=== PATIENT | female | born 1945 | race Caucasian/White ===

== ENCOUNTER 2016-12-15 10:37 | Inpatient (IN) | payer MEDICARE, OTHER ==
[2016-12-15] VITALS (10 sets, daily range): BP systolic 98–141; BP diastolic 53–81; PULSE 70–94; RESP 16–20; TEMP 97–97.8; O2SAT 94–98
[~2016-12-15] VITALS: Ht 167.6 cm; Wt 80.8 kg
[~2016-12-15 10:37] MED LIST: ADVAI250I INH; APIX5 PO; BUME1TAB PO; DIGO0.12 PO; DILTCD240 PO; FOLI1 PO; KCL20 PO; MAGN400 PO; METO25 PO; OMEP20TA PO; THIA100T PO
[2016-12-15] MEDS ORDERED: APIX5TAB PO (12:43)
[2016-12-15] MEDS ORDERED: DIGO0.12 PO (12:44)
[2016-12-15] MEDS ORDERED: BUME1TAB PO (12:44)
[2016-12-15] MEDS ORDERED: CARD120T4 PO (12:45)
[2016-12-15] MEDS ORDERED: FOLI5CAP PO (12:45)
[2016-12-15] MEDS ORDERED: POTA-163 PO (12:46)
[2016-12-15] MEDS ORDERED: THIA100T PO (12:46)
[2016-12-15] MEDS ORDERED: METO50TA PO (12:46)
--- NOTE | 2016-12-15 13:14 | PD ---
HPI Chief Complaint: Cardiac Complaint Time Seen by Provider: 12:52 Travel History International Travel<30 days: No Contact w/Intl Traveler<30days: No Traveled to known affect area: No History of Present Illness HPI 71-year-old female complains of shortness of breath, increasing lower extremity edema. Patient has history of atrial fibrillation, alcohol abuse, CVA, CHF, COPD, encephalopathy, GERD, hypertension, nicotine dependence. Patient noticed increase in shortness of breath, abdominal distention, jaundice, dark urine, lower extremity edema recently. Patient was seen by a director of strategic partnerships recently and advised to go to ED for evaluation. Patient denies any headache. Patient denies any chest pain. Patient states that she has shortness of breath and dyspnea on exertion. Patient has history of CHF and COPD and a smoker. Patient states that she drinks alcohol daily. Patient states that she went into alcohol withdrawal with hallucinations in the past if she stopped drinking. Patient denies any fever chills. Patient denies abdominal pain. Patient denies any nausea vomiting diarrhea. Patient denies any back pain. PFSH Past Medical History Arthritis: No Asthma: No Autoimmune Disease: No Anxiety: No Depression: No Heart Rhythm Problems: Yes (A-fib) Cancer: No Cardiovascular Problems: Yes (CHF) High Cholesterol: No Chemotherapy: No Chest Pain: No Congestive Heart Failure: Yes COPD: Yes Cerebrovascular Accident: Yes (Patient states she didn't have a stroke) Diabetes: No Diminished Hearing: No Endocrine: No Gastrointestinal Disorders: Yes GERD: No Genitourinary: Yes Hiatal Hernia: No Hypertension: Yes Immune Disorder: No Implanted Vascular Access Dvce: Yes Kidney Stones: No Musculoskeletal: Yes Neurologic: No Psychiatric: No Reproductive: No Respiratory: Yes Migraines: Yes Radiation Therapy: No Renal Failure: No Seizures: No Sickle Cell Disease: No Sleep Apnea: No Thyroid Disease: No Ulcer: No Tetanus Vaccination: > 5 Years Influenza Vaccination: No Past Surgical History AICD: No Arteriovenous Shunt: No Insulin Pump: No Joint Replacement: No Oral Surgery: Yes Pacemaker: No Other Surgery: Yes Social History Alcohol Use: Yes Tobacco Use: Yes (2 ppd) Substance Use: No Allergies-Medications (Allergen,Severity, Reaction): Coded Allergies: Penicillin (Verified Allergy, Severe, RASH, 12/15/16) Reported Meds & Prescriptions Reported Meds & Active Scripts Active Reported Thiamine (Thiamine HCl) 100 Mg Tab 100 Mg PO DAILY Potassium Chloride ER (Potassium Chloride) 20 Meq Tab 20 Meq PO DAILY Metoprolol Tartrate 50 Mg Tab 50 Mg PO BID Folic Acid 5 Mg Cap 1 Mg PO DAILY Cardizem (Diltiazem HCl) 120 Mg Tab 240 Mg PO DAILY Digoxin 0.125 Mg Tab 0.125 Mg PO DAILY Bumetanide 1 Mg Tab 1 Mg PO DAILY Eliquis (Apixaban) 5 Mg Tab 5 Mg PO BID Review of Systems General / Constitutional: No: Fever Eyes: No: Visual changes HENT: No: Headaches Cardiovascular: No: Chest Pain or Discomfort Respiratory: Positive: Shortness of Breath Gastrointestinal: No: Abdominal Pain Genitourinary: No: Dysuria Musculoskeletal: Positive: Edema, No: Pain Skin: No Rash Neurologic: No: Weakness Psychiatric: No: Depression Endocrine: No: Polydipsia Hematologic/Lymphatic: No: Easy Bruising Physical Exam Narrative GENERAL: Well-nourished, well-developed patient. SKIN: Warm and dry. Jaundiced HEAD: Normocephalic. EYES: Bilateral scleral icterus. No injection or drainage. NECK: Supple, trachea midline. No JVD or lymphadenopathy. CARDIOVASCULAR: Regular rate and rhythm without murmurs, gallops, or rubs. RESPIRATORY: Breath sounds equal bilaterally. No accessory muscle use. Mild expiratory wheezes bilaterally. Few rhonchi at the bases. GASTROINTESTINAL: Abdomen soft, distended. No tenderness on palpation. No rebound tenderness. MUSCULOSKELETAL: Patient has +2 pitting edema lower extremity. BACK: Nontender without obvious deformity. No CVA tenderness. Neurologic exam: Patient awake and alert oriented 3. No obvious focal neurological deficit. Data Data Last Documented VS Vital Signs Date Time Temp Pulse Resp B/P Pulse Ox O2 Delivery O2 Flow Rate FiO2 12/15/16 13:56 79 16 112/57 98 Room Air 12/15/16 12:32 97.6 Orders Nicotine 14 Mg Patch.24 Hr (Habitrol 14 (12/15/16 13:15) Thiamine Inj (Thiamine Inj) (12/15/16 13:15) Electrocardiogram (12/15/16 13:02) Complete Blood Count With Diff (12/15/16 13:02) Comprehensive Metabolic Panel (12/15/16 13:02) B-Type Natriuretic Peptide (12/15/16 13:02) Prothrombin Time / Inr (Pt) (12/15/16 13:02) Act Partial Throm Time (Ptt) (12/15/16 13:02) Lipase (12/15/16 13:02) Urinalysis - C+S If Indicated (12/15/16 13:02) Magnesium (Mg) (12/15/16 13:02) Alcohol (Ethanol) (12/15/16 13:02) Digoxin (12/15/16 13:02) Ammonia (12/15/16 13:02) Thyroid Stimulating Hormone (12/15/16 13:02) Phosphorus (Po4) (12/15/16 13:02) Chest, Single Ap (12/15/16 13:02) Ct Abd/Pel W/O Iv Contrast (12/15/16 13:02) Iv Access Insert/Monitor (12/15/16 13:02) Ecg Monitoring (12/15/16 13:02) Oximetry (12/15/16 13:02) Us Leg Venous Doppler Bilat (12/15/16 14:17) Labs Laboratory Tests Test 12/15/16 13:40 White Blood Count 11.8 TH/MM3 Red Blood Count 3.59 MIL/MM3 Hemoglobin 12.4 GM/DL Hematocrit 37.7 % Mean Corpuscular Volume 105.0 FL Mean Corpuscular Hemoglobin 34.6 PG Mean Corpuscular Hemoglobin 32.9 % Concent Red Cell Distribution Width 16.8 % Platelet Count 234 TH/MM3 Mean Platelet Volume 8.0 FL Neutrophils (%) (Auto) 75.4 % Lymphocytes (%) (Auto) 8.8 % Monocytes (%) (Auto) 12.0 % Eosinophils (%) (Auto) 1.5 % Basophils (%) (Auto) 2.3 % Neutrophils # (Auto) 8.9 TH/MM3 Lymphocytes # (Auto) 1.0 TH/MM3 Monocytes # (Auto) 1.4 TH/MM3 Eosinophils # (Auto) 0.2 TH/MM3 Basophils # (Auto) 0.3 TH/MM3 CBC Comment DIFF FINAL Differential Comment Prothrombin Time 15.2 SEC Prothromb Time International 1.4 RATIO Ratio Activated Partial 27.8 SEC Thromboplast Time Sodium Level 135 MEQ/L Potassium Level 3.8 MEQ/L Chloride Level 91 MEQ/L Carbon Dioxide Level 36.0 MEQ/L Anion Gap 8 MEQ/L Blood Urea Nitrogen 6 MG/DL Creatinine 0.60 MG/DL Estimat Glomerular Filtration 99 ML/MIN Rate Random Glucose 95 MG/DL Calcium Level 7.1 MG/DL Protein Corrected Calcium 7.6 MG/DL Phosphorus Level 2.8 MG/DL Magnesium Level 1.3 MG/DL Total Bilirubin 6.1 MG/DL Aspartate Amino Transf 101 U/L (AST/SGOT) Alanine Aminotransferase 38 U/L (ALT/SGPT) Alkaline Phosphatase 274 U/L Ammonia 58 MCMOL/L B-Type Natriuretic Peptide 635 PG/ML Total Protein 6.1 GM/DL Albumin 2.1 GM/DL Lipase 141 U/L Thyroid Stimulating Hormone 6.440 uIU/ML 3rd Gen Digoxin Level 1.2 NG/ML Ethyl Alcohol Level LESS THAN 3 MG/DL [facility] Medical Decision Making Medical Screen Exam Complete: Yes Emergency Medical Condition: Yes Medical Record Reviewed: Yes Interpretation(s) 1415 p.m. Last Impressions Abdomen/Pelvis CT 12/15/16 1302 Signed Impressions: Service Date/Time: November 13:22 - CONCLUSION: 1. Small right basilar effusion. 2. Mild cardiomegaly. 3. Atherosclerotic plaquing throughout the abdominal aorta. 4. No findings to indicate bowel obstruction or other significant intra-abdominal abnormality seen. No ascites is identified. 5. Enlargement of the uterus suggesting fibroids. Uriel Santana MD 1416 p.m. CBC WBC 11.8. Hemoglobin 12.4 hematocrit 37.7. MCV 105. 75 neutrophil. INR 1.4. Ammonia 58. 1445 PM. Chest x-ray show cardiomegaly with small left basilar effusion. Possible CHF. Sodium 135. Chloride 91. Bicarbonate 36.0. Protein corrected calcium 7.6. Magnesium 1.3. Total bili 6.1. AST 101. Alkaline phosphatase 274. Ammonia 58. BNP 635. TSH 6.4. Digoxin 1.2. Alcohol less than 3. Differential Diagnosis Differential diagnosis including acute exacerbation COPD, CHF, ascites, dependent edema. Narrative Course 71-year-old female with shortness of breath, abdominal distention, jaundice, lower extremity edema. History of CHF, COPD, alcohol abuse. Thiamine 100 mg IV. Nicotine patch. Calcium chloride 1 g IV given. Bumex 1 mg IV given. Diagnosis Primary Impression: Acute exacerbation of CHF (congestive heart failure) Qualified Code: I50.9 - Acute on chronic congestive heart failure, unspecified congestive heart failure type Additional Impression: Hepatic failure due to alcoholism Admitting Information Admitting Physician Requests: Observation Silvestre Brand MD Dec 15, 2016 13:14
[2016-12-15] MEDS ORDERED: NICOTINE 14 MG/24 HR PATCH TD ONE (13:15)
[2016-12-15] MEDS ORDERED: THIAMINE INJ 100 MG in SODIUM CHLORIDE 0.9% INJ 100 ML IV ONE (13:15)
--- NOTE | 2016-12-15 13:50 | RADHPO ---
EXAM DATE/TIME: 12/15/2016 13:22 [facility] COMPARISON: CT BRAIN W/O CONTRAST, April 19, 2015, 21:45. INDICATIONS : Abdominal distention. ORAL CONTRAST: No oral contrast ingested. RADIATION DOSE: 14.99 CTDIvol (mGy) MEDICAL HISTORY : Congestive hearrt failure. Chronic obstructive pulmonary disease. Hypertension. SURGICAL HISTORY : None. ENCOUNTER: Initial ACUITY: 4 - 6 days PAIN SCALE: 0/10 LOCATION: Abdomen. TECHNIQUE: Volumetric scanning of the abdomen and pelvis was performed. Using automated exposure control and ad justment of the mA and/or kV according to patient size, radiation dose was kept as low as reasonably achievable to obtain optimal diagnostic quality images. FINDINGS: The limited portion of the lung base visualized demonstrate a small right basilar effusion. There is a 6 mm calcified granuloma among the lateral margin of the right lower lobe. There is mild cardiomegaly. The appearance of the liver, spleen, pancreas, adrenal glands and kidneys is within normal limits. There is no retroperitoneal lymphadenopathy. There is atherosclerotic plaquing within the abdominal a adri. The visualized loops of small and large bowel are unremarkable. Imaging through the pelvis demonstrates mild enlargement of the uterus with some calcifications in th e uterus suggesting fibroids. There is no free fluid within the pelvis. No iliac or inguinal adenopat hy is present. The anterior abdominal wall is intact. There is some induration in the anterior abdominal wall. The visualized bony structures demonstrate degenerative changes but are otherwise intact. CONCLUSION: 1. Small right basilar effusion. 2. Mild cardiomegaly. 3. Atherosclerotic plaquing throughout the abdominal aorta. 4. No findings to indicate bowel obstruction or other significant intra-abdominal abnormality seen. N o ascites is identified. 5. Enlargement of the uterus suggesting fibroids. Uriel Santana MD on December 15, 2016 at 13:45 Board Certified Radiologist. This report was verified electronically.
[2016-12-15 13:53] LABS: AUTOMATED NEUTROPHIL # 8.9 TH/MM3 (1.8-7.7); BASOPHIL # 0.3 TH/MM3 (0-0.2); BASOPHIL % 2.3 % (0.0-2.0); EOSINOPHIL # 0.2 TH/MM3 (0-0.4); EOSINOPHIL % 1.5 % (0.0-4.0); HEMATOCRIT 37.7 % (35.0-46.0); LYMPH % 8.8 % (9.0-44.0); MEAN CORPUSCULAR HEMOGLOBIN 34.6 PG (27.0-34.0); MEAN CORPUSCULAR HGB CONC 32.9 % (32.0-36.0); NEUT % 75.4 % (16.0-70.0); PLATELET COUNT 234 TH/MM3 (150-450); RED BLOOD COUNT 3.59 MIL/MM3 (4.00-5.30); RED CELL DISTRIBUTION WIDTH 16.8 % (11.6-17.2); WHITE BLOOD COUNT 11.8 TH/MM3 (4.0-11.0)
[2016-12-15 13:54] LABS: HEMO FLAGS DIFF FINAL
[2016-12-15 14:02] LABS: CHLORIDE 91 MEQ/L (98-107); POTASSIUM 3.8 MEQ/L (3.5-5.1); SODIUM (NA) 135 MEQ/L (136-145)
[2016-12-15 14:07] LABS: APTT (PATIENT) 27.8 SEC (24.3-30.1); INTERNATIONAL NORMALIZED RATIO 1.4 RATIO; PROTHROMBIN TIME - PATIENT 15.2 SEC (9.8-11.6)
--- NOTE | 2016-12-15 14:22 | RADHPO ---
EXAM DATE/TIME: 12/15/2016 13:55 [facility] COMPARISON: CHEST SINGLE AP, April 29, 2015, 13:40. INDICATIONS : Short of breath. Bilateral lower extremity swelling. MEDICAL HISTORY : Hypertension. Congestive heart failure. Chronic obstructive pulmonary disease. SURGICAL HISTORY : None. ENCOUNTER: Initial ACUITY: 3 days PAIN SCORE: 0/10 LOCATION: Bilateral chest FINDINGS: The exam demonstrates mild cardiomegaly and a small right basilar effusion. In the appropriate clinic al setting this could suggest congestive failure. There are some mild COPD changes as well. There is an old, ununited left clavicular head fracture. There are degenerative changes within the sh oulders bilaterally. CONCLUSION: 1. Cardiomegaly and small left basilar effusion. This could suggest congestive failure. Uriel Santana MD on December 15, 2016 at 14:18 Board Certified Radiologist. This report was verified electronically.
[2016-12-15 14:29] LABS: ALKALINE PHOSPHATASE 274 U/L (45-117); ALT (GPT) 38 U/L (10-53); ANION GAP 8 MEQ/L (5-15); AST (GOT) 101 U/L (15-37); BLOOD UREA NITROGEN 6 MG/DL (7-18); CALCIUM-PROTEIN CORRECTED 7.6 MG/DL (8.5-10.1); DIGOXIN 1.2 NG/ML (0.8-2.0); GLOMERULAR FILTRATION RATE 99 ML/MIN (>89); MAGNESIUM 1.3 MG/DL (1.5-2.5); TOTAL BILIRUBIN ADULT 6.1 MG/DL (0.2-1.0)
[2016-12-15] MEDS ORDERED: BUMETANIDE INJ 1 MG/4 ML VIAL IV PUSH ONE (15:00)
[2016-12-15] MEDS ORDERED: CALCIUM CHLORIDE INJ 1 GM in SODIUM CHLORIDE 0.9% INJ 100 ML IV ONE (15:00)
[2016-12-15] MEDS ORDERED: SODIUM CHLORIDE 0.9% FLUSH 5 ML FLUSH IVF PRN (15:15)
[2016-12-15] MEDS ORDERED: ONDANSETRON HCL 4 MG/2 ML VIAL IV PRN (15:15)
[2016-12-15] MEDS: MAGNESIUM SULFATE 1 GM PREMIX 100 ML IV SCH ×2 (15:30→16:30)
--- NOTE | 2016-12-15 15:46 | RADHPO ---
EXAM DATE/TIME: 12/15/2016 15:13 [facility] COMPARISON: US CAROTID ARTERIES, April 20, 2015, 14:11. INDICATIONS : Bilateral leg swelling. MEDICAL HISTORY : Stroke. Hypertension. Chronic obstructive pulmonary disease. Head trauma. CHF. A-Fib. UTI. Measles. SURGICAL HISTORY : Oral surgery. ENCOUNTER: Initial ACUITY: 2 weeks PAIN SCORE: 3/10 LOCATION: Bilateral legs. TECHNIQUE: Venous ultrasound of the left and right leg was performed from the inguinal ligament to the proximal calf. Real-time, color Doppler and spectral tracing, compression and augmentation techniques were us ed. FINDINGS: RIGHT LEG: There is normal compressibility of the deep venous system from the inguinal region to the proximal ca lf. No echogenic clot is seen in the lumen of the common femoral, femoral, popliteal, and posterior tibial veins. There is a normal response of the venous system to proximal and distal augmentation an d respiration. LEFT LEG: There is normal compressibility of the deep venous system from the inguinal region to the proximal ca lf. No echogenic clot is seen in the lumen of the common femoral, femoral, popliteal, and posterior tibial veins. There is a normal response of the venous system to proximal and distal augmentation an d respiration. CONCLUSION: 1. No DVT identified within either lower extremity. 2. There are edematous changes within the subcutaneous soft tissues. Uriel Santana MD on December 15, 2016 at 15:44 Board Certified Radiologist. This report was verified electronically.
--- NOTE | 2016-12-15 15:46 | HHI.HP ---
[facility] Daniella Rosenberg Admission Diagnosis acute exacerbation CHF. Hepatic failure. Coagulopathy. Diagnoses: Chief Complaint: Extremity edema Travel History International Travel<30 Days: No Contact w/Intl Traveler <30 Da: No Traveled to Known Affected Are: No History of Present Illness Patient is a 71-year-old female with chronic tobaccoism and chronic alcoholism who came to the emergency room because of increased edema over the last several weeks. Patient has increased dyspnea on exertion, orthopnea and shortness of breath. She says she's gained about 20 pounds in last 3 weeks. She normally takes Bumex for congestive heart failure (he has diastolic heart failure by echocardiogram in 2015. The patient has a reported adherence to medical treatment plan however noted that her symptoms were getting worse and her brother with whom she is staying encourage her to come to the hospital. She does have a mildly elevated BNP along with x-ray findings which are reviewed by me and consistent with basilar congestion. There are reviewed her EKG was social rate controlled atrial fibrillation and other nonspecific changes. Patient denies chest pain. Patient is admitted through the emergency room for evaluation of acute CHF exacerbation. She was given IV Bumex and has urinated some however she reported some urinary incontinence and is not sure how much relief she has gotten from that. For these reasons the patient is been admitted to the hospital Review of Systems Constitutional: COMPLAINS OF: Weight gain (20 pounds in 3 weeks), DENIES: Diaphoretic episodes, Fatigue, Fever, Weight loss, Chills, Dizziness, Change in appetite, Night Sweats Endocrine: DENIES: Abnorml menstrual pattern, Heat/cold intolerance, Polydipsia , Polyuria, Polyphagia Eyes: DENIES: Blurred vision, Diplopia, Eye inflammation, Eye pain, Vision loss , Photosensitivity, Double Vision Ears, nose, mouth, throat: DENIES: Tinnitus, Hearing loss, Vertigo, Nasal discharge, Oral lesions, Throat pain, Hoarseness, Ear Pain, Running Nose, Epistaxis, Sinus Pain, Toothache, Odynophagia Respiratory: DENIES: Apneas, Cough, Snoring, Wheezing, Hemoptysis, Sputum production, Shortness of breath Cardiovascular: COMPLAINS OF: Lower Extremity Edema, Orthopnea, DENIES: Chest pain, Palpitations, Syncope, Dyspnea on Exertion, PND, Claudication Gastrointestinal: DENIES: Abdominal pain, Black stools, Bloody stools, Constipation, Diarrhea, Nausea, Vomiting, Difficulty Swallowing, Anorexia Genitourinary: DENIES: Abnormal vaginal bleeding, Dysmenorrhea, Dyspareunia, Sexual dysfunction, Urinary frequency, Urinary incontinence, Urgency, Hematuria , Dysuria, Nocturia, Vaginal discharge Musculoskeletal: DENIES: Joint pain, Muscle aches, Stiffness, Joint Swelling, Back pain, Neck pain Integumentary: DENIES: Abnormal pigmentation, Pruritus, Rash, Nail changes, Breast masses, Breast skin changes, Nipple discharge Hematologic/lymphatic: DENIES: Bruising, Lymphadenopathy Immunologic/allergic: DENIES: Eczema, Urticaria Neurologic: COMPLAINS OF: Abnormal gait, DENIES: Headache, Localized weakness , Paresthesias, Seizures, Speech Problems, Tremor, Poor Balance Psychiatric: DENIES: Anxiety, Confusion, Mood changes, Depression, Hallucinations, Agitation, Suicidal Ideation, Homicidal Ideation, Delusions Past Family Social History Past Medical History Congestive heart failure History of stroke with minimal residual Atrial fibrillation on blood thinners Chronic tobaccoism Chronic alcoholism Chronic weakness Past Surgical History Oral surgery Reported Medications Reviewed in the medical record Allergies: Coded Allergies: Penicillin (Verified Allergy, Severe, RASH, 12/15/16) Active Ordered Medications Reviewed in the medical record Family History No family history of heart or lung failure Her brother is healthy Social History Drinks several glasses of vodka daily, half a pack of tobacco 50+ years Physical Exam Vital Signs Vital Signs Date Time Temp Pulse Resp B/P Pulse Ox O2 Delivery O2 Flow Rate FiO2 12/15/16 14:54 77 16 92 Room Air 12/15/16 14:54 81 16 112/57 95 Room Air 12/15/16 13:56 79 16 112/57 98 Room Air 12/15/16 13:56 99 Room Air 12/15/16 13:12 94 Room Air 12/15/16 12:32 79 18 98 Room Air 12/15/16 12:32 97.6 93 16 141/81 98 Room Air 12/15/16 10:47 97.6 88 17 98/64 98 Physical Exam GENERAL: This is a well-nourished, well-developed patient, in no apparent distress. SKIN: Lower ext woody skin changes consistent with Venous Stasis. No rashes, ecchymoses or lesions. Cool and dry. HEAD: Atraumatic. Normocephalic. No temporal or scalp tenderness. EYES: Pupils equal round and reactive. Extraocular motions intact. No scleral icterus. No injection or drainage. ENT: Nose without bleeding, purulent drainage or septal hematoma. Throat without erythema, tonsillar hypertrophy or exudate. Uvula midline. Airway patent. NECK: Trachea midline. No JVD or lymphadenopathy. Supple, nontender, no meningeal signs. CARDIOVASCULAR: Regular rate and rhythm without murmurs, gallops, or rubs. RESPIRATORY: crackles in the bases. Breath sounds equal bilaterally. No wheezes , rales, or rhonchi. GASTROINTESTINAL: Abdomen soft, non-tender, nondistended. No hepato-splenomegaly , or palpable masses. No guarding. MUSCULOSKELETAL: Extremities without clubbing, cyanosis, there is +3 edema. No joint tenderness, effusion, or edema noted. No calf tenderness. Negative Homans sign bilaterally. NEUROLOGICAL: Awake and alert. Cranial nerves II through XII intact. Motor and sensory grossly within normal limits. Five out of 5 muscle strength in all muscle groups. Normal speech. Laboratory Laboratory Tests Test 12/15/16 13:40 White Blood Count 11.8 Red Blood Count 3.59 Hemoglobin 12.4 Hematocrit 37.7 Mean Corpuscular Volume 105.0 Mean Corpuscular Hemoglobin 34.6 Mean Corpuscular Hemoglobin 32.9 Concent Red Cell Distribution Width 16.8 Platelet Count 234 Mean Platelet Volume 8.0 Neutrophils (%) (Auto) 75.4 Lymphocytes (%) (Auto) 8.8 Monocytes (%) (Auto) 12.0 Eosinophils (%) (Auto) 1.5 Basophils (%) (Auto) 2.3 Neutrophils # (Auto) 8.9 Lymphocytes # (Auto) 1.0 Monocytes # (Auto) 1.4 Eosinophils # (Auto) 0.2 Basophils # (Auto) 0.3 CBC Comment DIFF FINAL Differential Comment Prothrombin Time 15.2 Prothromb Time International 1.4 Ratio Activated Partial 27.8 Thromboplast Time Sodium Level 135 Potassium Level 3.8 Chloride Level 91 Carbon Dioxide Level 36.0 Anion Gap 8 Blood Urea Nitrogen 6 Creatinine 0.60 Estimat Glomerular Filtration 99 Rate Random Glucose 95 Calcium Level 7.1 Protein Corrected Calcium 7.6 Phosphorus Level 2.8 Magnesium Level 1.3 Total Bilirubin 6.1 Aspartate Amino Transf 101 (AST/SGOT) Alanine Aminotransferase 38 (ALT/SGPT) Alkaline Phosphatase 274 Ammonia 58 B-Type Natriuretic Peptide 635 Total Protein 6.1 Albumin 2.1 Lipase 141 Thyroid Stimulating Hormone 6.440 3rd Gen Digoxin Level 1.2 Ethyl Alcohol Level LESS THAN 3 Result Diagram: 12/15/16 1340 12/15/16 1340 Imaging Last Impressions Chest X-Ray 12/15/16 1302 Signed Impressions: Service Date/Time: November 13:55 - CONCLUSION: 1. Cardiomegaly and small left basilar effusion. This could suggest congestive failure. Uriel Santana MD Abdomen/Pelvis CT 12/15/16 1302 Signed Impressions: Service Date/Time: November 13:22 - CONCLUSION: 1. Small right basilar effusion. 2. Mild cardiomegaly. 3. Atherosclerotic plaquing throughout the abdominal aorta. 4. No findings to indicate bowel obstruction or other significant intra-abdominal abnormality seen. No ascites is identified. 5. Enlargement of the uterus suggesting fibroids. Uriel Santana MD Assessment and Plan Problem List: (1) CHF (congestive heart failure) ICD Code: I50.9 Status: Chronic Plan: Exacerbation of congestive heart failure Likely diastolic resume previous echo Repeat echo and has been about 2 years We'll continue digoxin, CHAU inhibitor, Cardizem, will add IV Bumex and follow ins and outs Patient on beta jason also which we will continue Patient also on Eliquis (2) A-fib ICD Code: I48.91 Status: Chronic Plan: Currently controlled with diltiazem, digoxin and metoprolol Continue Eliquis (3) HTN (hypertension) ICD Code: I10 Status: Chronic Plan: Currently controlled metoprolol, diltiazem, we'll consider CHAU inhibitor (4) Alcohol dependence ICD Code: F10.20 Status: Acute Plan: Patient with elevated ammonia level. Patient also on diuretics May benefit from Aldactone however patient on quite a bit of diuretic already we will continue to follow patient's progress on IV medications (5) Nicotine dependence ICD Code: F17.200 Status: Acute Plan: Continue nicotine patch Brenda Aguilar MD Dec 15, 2016 15:46
[2016-12-15 16:11] LABS: BLOOD, URINE SMALL (NEG); GLUCOSE,URINE NEG (NEG); KETONE, URINE NEG (NEG); NITRITE,URINE NEG (NEG); PH, URINE 7.5 (5.0-8.5)
[2016-12-15 16:15] LABS: METHOD OF COLLECTION CLEAN CATCH; URINE COLOR AMBER (YELLW/STRAW)
[2016-12-15 16:16] LABS: BACTERIA, URINE MOD /hpf
[2016-12-15 16:19] LABS: CULTURE IF INDICATED CULTURE INDICATED; SQUAMOUS EPITHELIAL CELL URINE > 8 /hpf (0-5)
[2016-12-15 16:20] LABS: COMMENT (UR) CULTURE INDICATED; TRANSITIONAL EPI CELLS, URINE 0-5 /hpf
[2016-12-15 17:12] LABS: THYROXINE (T4) 8.6 MCG/DL (4.8-13.9)
[2016-12-15 17:20] LABS: FREE T3 2.22 PG/ML (2.18-3.98)
[2016-12-15] MEDS: BUMETANIDE INJ 1 MG/4 ML VIAL IV PUSH SCH (17:54)
[2016-12-15] MEDS: METOPROLOL TARTRATE 50 MG TAB PO SCH (19:58)
[2016-12-15] MEDS: SODIUM CHLORIDE 0.9% FLUSH 5 ML FLUSH IVF SCH (20:15)
[2016-12-15] MEDS: APIXABAN 5 MG TABLET PO SCH (20:15)
--- NOTE | 2016-12-15 21:11 | HHI.PR ---
Addendum to Inpatient Note Addendum Reason: Additional Documentation Additional Information I was called by patient's nurse the patient has been refusing her magnesium and calcium supplements which were ordered at 3 PM. Patient's nursing staff has repeatedly explained to her about the need for electrolytes. However they were unsure whether has explained to her yet and therefore called to me. Patient's labs reviewed. Magnesium is 1.3. Protein corrected sodium is 7.6. Patient is getting diuresis with Bumex. I have therefore called patient's room and talked to her personally. I have explained to her that her electrolytes abnormalities would need to be corrected given that she is receiving diuresis and that she adds at high risk for cardiac arrhythmias which could include high heart rates and low heart rates and also stopping her heart rate. However patient presents to me for less than 2 minutes and stated she does not want to hear it any longer and hang up on the phone. She has told nursing staff previously that she only wanted to take medications if her brother and her primary care doctor approves it. Costa Rivera MD Dec 15, 2016 21:11
[2016-12-16] VITALS (7 sets, daily range): BP systolic 93–115; BP diastolic 53–74; PULSE 71–102; RESP 14–20; TEMP 97.2–98.8; O2SAT 94–98
[2016-12-16 06:09] LABS: BICARBONATE 36.8 MEQ/L (21.0-32.0); MAGNESIUM 1.3 MG/DL (1.5-2.5)
[2016-12-16 06:14] LABS: POTASSIUM 2.5 MEQ/L (3.5-5.1)
[2016-12-16 06:31] LABS: CALCIUM-PROTEIN CORRECTED 7.8 MG/DL (8.5-10.1)
[2016-12-16] MEDS ORDERED: POTASSIUM CHLORIDE 20 MEQ CONTROLLED RELEASE TAB PO ONE (06:45)
[2016-12-16] MEDS ORDERED: MAGNESIUM OXIDE 400 MG TAB PO ONE (06:45)
[2016-12-16] MEDS ORDERED: POTASSIUM CHLORIDE 20 MEQ CONTROLLED RELEASE TAB PO SCH (09:00)
[2016-12-16] MEDS: DIGOXIN 0.125 MG TAB PO SCH (09:08)
[2016-12-16] MEDS: METOPROLOL TARTRATE 50 MG TAB PO SCH (09:08)
[2016-12-16] MEDS: FOLIC ACID 1 MG TAB PO SCH (09:08)
[2016-12-16] MEDS: APIXABAN 5 MG TABLET PO SCH ×2 (09:08→20:37)
[2016-12-16] MEDS: THIAMINE HCL 100 MG TAB PO SCH (09:08)
[2016-12-16] MEDS: DILTIAZEM-CD 240 MG CAP ER PO SCH (09:08)
[2016-12-16] MEDS: SODIUM CHLORIDE 0.9% FLUSH 5 ML FLUSH IVF SCH ×2 (09:09→20:37)
[2016-12-16] MEDS: BUMETANIDE INJ 1 MG/4 ML VIAL IV PUSH SCH (09:09)
[2016-12-16 09:22] LABS: HDL CHOLESTEROL 9.7 MG/DL (40.0-60.0)
[2016-12-16] MEDS: MAGNESIUM SULFATE 1 GM PREMIX 100 ML IV SCH ×2 (09:44→11:00)
[2016-12-16] MEDS ORDERED: CALCIUM GLUCONATE INJ 1 GM in SODIUM CHLORIDE 0.9% INJ 100 ML IV ONE (12:00)
--- NOTE | 2016-12-16 12:10 | HHI.PR ---
Subjective Remarks Patient seen and evaluated today in follow-up for congestive heart failure. Echocardiogram pending. Electrolytes replaced. Care plan discussed with physical therapy Patient does not recall overnight conversation with physician Objective Vitals Vital Signs Date Time Temp Pulse Resp B/P Pulse Ox O2 Delivery O2 Flow Rate FiO2 12/16/16 11:55 97.2 81 20 99/74 94 12/16/16 08:00 97.3 102 20 115/60 98 12/16/16 07:52 95 21 12/16/16 00:00 98.6 85 18 98/61 96 12/15/16 20:00 97.0 94 18 103/57 98 12/15/16 19:51 95 21 12/15/16 16:45 97.8 94 20 110/53 96 12/15/16 16:27 70 16 110/56 95 Room Air 12/15/16 16:27 Room Air 12/15/16 15:30 95 21 12/15/16 14:54 77 16 92 Room Air 12/15/16 14:54 81 16 112/57 95 Room Air 12/15/16 13:56 79 16 112/57 98 Room Air 12/15/16 13:56 99 Room Air 12/15/16 13:12 94 Room Air 12/15/16 12:32 79 18 98 Room Air 12/15/16 12:32 97.6 93 16 141/81 98 Room Air I/O 12/15/16 12/15/16 12/15/16 12/16/16 12/16/16 12/16/16 07:00 15:00 23:00 07:00 15:00 23:00 Intake Total 100 ml 120 ml Balance 100 ml 120 ml Intake Oral 120 ml IV Total 100 ml # Voids 2 # Bowel Movements 1 Result Diagram: 12/15/16 1340 12/16/16 0540 Imaging Last Impressions Lower Extremity Ultrasound 12/15/16 1417 Signed Impressions: Service Date/Time: November 15:13 - CONCLUSION: 1. No DVT identified within either lower extremity. 2. There are edematous changes within the subcutaneous soft tissues. Uriel Santana MD Chest X-Ray 12/15/16 1302 Signed Impressions: Service Date/Time: November 13:55 - CONCLUSION: 1. Cardiomegaly and small left basilar effusion. This could suggest congestive failure. Uriel Santana MD Abdomen/Pelvis CT 12/15/16 1302 Signed Impressions: Service Date/Time: November 13:22 - CONCLUSION: 1. Small right basilar effusion. 2. Mild cardiomegaly. 3. Atherosclerotic plaquing throughout the abdominal aorta. 4. No findings to indicate bowel obstruction or other significant intra-abdominal abnormality seen. No ascites is identified. 5. Enlargement of the uterus suggesting fibroids. Uriel Santana MD Objective Remarks GENERAL: This is a well-nourished, well-developed patient, in no apparent distress. CARDIOVASCULAR: Regular rate and rhythm without murmurs, gallops, or rubs. RESPIRATORY: Clear to auscultation. Breath sounds equal bilaterally. No wheezes , rales, or rhonchi. GASTROINTESTINAL: Abdomen soft, non-tender, nondistended. Normal active bowel sounds MUSCULOSKELETAL: Lower extremity is with woody skin changes of chronic edema, upper Extremities without clubbing, cyanosis, or edema. NEURO: Alert & Oriented x4 to person, place, time, situation. Moves all ext x4 A/P Problem List: (1) CHF (congestive heart failure) ICD Code: I50.9 Status: Chronic Plan: Exacerbation of congestive heart failure Likely diastolic based on previous echo Repeat echo pending We'll continue digoxin, CHAU inhibitor, Cardizem, po Bumex and follow ins and outs Patient on beta jason also which we will continue Patient also on Eliquis (2) A-fib ICD Code: I48.91 Status: Chronic Plan: Currently controlled with diltiazem, digoxin and metoprolol Continue Eliquis Thyroid studies actually normal (3) HTN (hypertension) ICD Code: I10 Status: Chronic Plan: Currently controlled metoprolol, diltiazem, add CHAU inhibitor (4) Alcohol dependence ICD Code: F10.20 Status: Acute Plan: Patient with elevated ammonia level. Patient also on diuretics May benefit from Aldactone however patient on quite a bit of diuretic already we will continue to follow patient's progress on IV medications (5) Nicotine dependence ICD Code: F17.200 Status: Acute Plan: Continue nicotine patch (6) Electrolyte abnormality ICD Code: E87.8 Status: Acute Plan: Replace hypokalemia, hypomagnesemia and hypocalcemia Discharge Planning home 1-2 days Brenda Aguilar MD Dec 16, 2016 12:09
[2016-12-16] MEDS ORDERED: LISINOPRIL 5 MG TAB PO SCH (13:00)
--- NOTE | 2016-12-16 13:04 | HHI.FF ---
Face to Face Verification Diagnosis: (1) Impaired cognition (2) Cerebellar infarction Physical Therapy Order: Evaluate and Treat, Improve ambulation Home Health Nursing Order: Medical education Signs/symptoms of disease process Inspector Boiler Order: To Evaluate: Living conditions/environment Order: To Provide: Long range planning I have seen patient Shannan Stokes on 12/16/16. My clinical findings support the need for the requested home health care services because: Ltd mobility - disease progression I certify that my clinical findings support that this patient is homebound because: Unsteady gait/balance Brenda Aguilar MD Dec 16, 2016 13:04
[2016-12-16 14:25] LABS: BICARBONATE 38.3 MEQ/L (21.0-32.0); MAGNESIUM 1.8 MG/DL (1.5-2.5)
--- NOTE | 2016-12-16 14:29 | EC ---
Study Study Date:12/16/2016 STUDY CONCLUSIONS SUMMARY - Left ventricle: The cavity size was normal. Wall thickness was normal. Systolic function was normal. The estimated ejection fraction was 55%. Wall motion was normal; there were no regional wall motion abnormalities. - Mitral valve: Mild regurgitation. - Left atrium: The atrium was mildly dilated. - Tricuspid valve: Mild regurgitation. - Pulmonary arteries: PA peak pressure: 36mm Hg (S). If LV function is below 40, please consider prescribing an ACEI or ARB or document rationale for non-use. PROCEDURE DATA STUDY STATUS: Elective. Procedure: Transthoracic echocardiography. Image quality was good. Scanning was performed from the parasternal, apical, and subcostal acoustic windows. Study completion: The patient tolerated the procedure well. Transthoracic echocardiography. M-mode, complete 2D, complete spectral Doppler, and color Doppler. Patient status: Inpatient. CARDIAC ANATOMY LEFT VENTRICLE: The cavity size was normal. Wall thickness was normal. Systolic function was normal. The estimated ejection fraction was 55%. Wall motion was normal; there were no regional wall motion abnormalities. AORTIC VALVE: Trileaflet; mildly thickened leaflets. Doppler: Transvalvular velocity was within the normal range. There was no stenosis. No regurgitation. AORTA: Aortic root: The aortic root was normal in size. MITRAL VALVE: Structurally normal valve. Doppler: Transvalvular velocity was within the normal range. There was no evidence for stenosis. Mild regurgitation. LEFT ATRIUM: The atrium was mildly dilated. RIGHT VENTRICLE: The cavity size was normal. Wall thickness was normal. PULMONIC VALVE: Doppler: Transvalvular velocity was within the normal range. There was no evidence for stenosis. No regurgitation. TRICUSPID VALVE: Structurally normal valve. Doppler: Transvalvular velocity was within the normal range. Mild regurgitation. PULMONARY ARTERY: The main pulmonary artery was normal-sized. Systolic pressure was within the normal range. RIGHT ATRIUM: The atrium was normal in size. PERICARDIUM: There was no pericardial effusion. SYSTEMIC VEINS: Inferior vena cava: The vessel was normal in size. BASIC MEASUREMENTS ADULT Normal Left ventricle LV internal dimension, ED, chordal level, *42.7 mm 43-52 PLAX LV internal dimension, ES, chordal level, 33 mm 23-38 PLAX Fractional shortening, chordal level, PLAX *23 % >29 LV posterior wall thickness, ED 8.85 mm IVS/LVPW ratio, ED 1.02 <1.3 Ventricular septum Septal thickness, ED 9.04 mm Aortic valve Leaflet separation 20 mm 15-26 Right ventricle RV internal dimension, ED, PLAX 28.9 mm 19-38 BASIC MEASUREMENTS ADULT Normal Aortic valve Leaflet separation 20 mm 15-26 Aorta Root diameter, ED 33 mm 20-37 Left atrium Anterior-posterior dimension, ES *45 mm 19-40 LA/aortic root ratio 1.36 DOPPLER MEASUREMENTS ADULT Normal Main pulmonary artery Pressure, S *36 mm Hg =30 Tricuspid valve Regurgitant peak velocity 244 cm/s Peak RV-RA gradient, S 24 mm Hg Maximal regurgitant velocity 244 cm/s Systemic veins Estimated CVP 10 mm Hg Right ventricle RV pressure, S *36 mm Hg <30 LEGEND: Mean values are shown as u=mean value. Asterisk (*) brewster values outside specified normal range. Amended Quadrat, Jah [id number]
[2016-12-16 14:58] LABS: POTASSIUM 2.7 MEQ/L (3.5-5.1)
[2016-12-16 15:18] LABS: CALCIUM-PROTEIN CORRECTED 7.7 MG/DL (8.5-10.1)
--- NOTE | 2016-12-16 16:47 | EKG ---
Date Performed: 12/15/2016 Time Performed: 13:50:40 PTAGE: 71 years EKG: Atrial fibrillation with PVC(s) Possible septal infarct - age undetermined Inferior/lateral ST-T changes are nonspecific Generalized low QRS voltages Abnormal ECG PREVIOUS TRACING : 04/20/2015 01.20 Compared to the previous tracing, Rapid ventricular respon se is no longer present DOCTOR: Darren Taylor Interpretating Date/Time 12/16/2016 16:45:35
[2016-12-16] MEDS ORDERED: BUMETANIDE 1 MG TAB PO SCH (18:00)
[2016-12-16] MEDS: EUCERIN CREAM 120 GM JAR TOPICAL SCH (20:37)
[2016-12-16] MEDS: POTASSIUM CHLORIDE 10 MEQ CONTROLLED RELEASE TAB PO SCH (20:37)
[2016-12-17 01:57] VITALS: BP 98/63; PULSE 88; RESP 16; TEMP 97.9; O2SAT 93
[2016-12-17 04:00] VITALS: BP 97/66; PULSE 90; RESP 18; TEMP 98; O2SAT 94
[2016-12-17 08:00] VITALS: BP 94/69; PULSE 137; RESP 20; TEMP 96; O2SAT 96; O2SAT 99
[2016-12-17 08:31] LABS: AUTOMATED NEUTROPHIL # 6.9 TH/MM3 (1.8-7.7); BASOPHIL # 0.1 TH/MM3 (0-0.2); EOSINOPHIL # 0.1 TH/MM3 (0-0.4); EOSINOPHIL % 1.5 % (0.0-4.0); HEMATOCRIT 35.3 % (35.0-46.0); LYMPHOCYTE # 1.1 TH/MM3 (1.0-4.8); MEAN CELL VOLUME 103.2 FL (80.0-100.0); MEAN CORPUSCULAR HEMOGLOBIN 34.9 PG (27.0-34.0); MEAN CORPUSCULAR HGB CONC 33.8 % (32.0-36.0); MONO % 8.1 % (0.0-8.0); NEUT % 77.4 % (16.0-70.0); PLATELET COUNT 235 TH/MM3 (150-450); RED BLOOD COUNT 3.42 MIL/MM3 (4.00-5.30); WHITE BLOOD COUNT 8.9 TH/MM3 (4.0-11.0)
[2016-12-17 08:34] LABS: HEMO FLAGS DIFF FINAL
[2016-12-17 08:37] LABS: POTASSIUM 3.2 MEQ/L (3.5-5.1)
[2016-12-17 08:49] LABS: BICARBONATE 37.1 MEQ/L (21.0-32.0)
[2016-12-17 09:12] LABS: CALCIUM-PROTEIN CORRECTED 8.1 MG/DL (8.5-10.1)
[2016-12-17] MEDS: SODIUM CHLORIDE 0.9% FLUSH 5 ML FLUSH IVF SCH ×2 (09:14→20:57)
[2016-12-17] MEDS: FOLIC ACID 1 MG TAB PO SCH (09:15)
[2016-12-17] MEDS: DIGOXIN 0.125 MG TAB PO SCH (09:15)
[2016-12-17] MEDS: DILTIAZEM-CD 240 MG CAP ER PO SCH (09:15)
[2016-12-17] MEDS: APIXABAN 5 MG TABLET PO SCH ×2 (09:15→20:56)
[2016-12-17] MEDS: POTASSIUM CHLORIDE 10 MEQ CONTROLLED RELEASE TAB PO SCH ×2 (09:16→20:56)
[2016-12-17] MEDS: EUCERIN CREAM 120 GM JAR TOPICAL SCH ×2 (09:16→20:59)
[2016-12-17] MEDS: THIAMINE HCL 100 MG TAB PO SCH (09:21)
--- NOTE | 2016-12-17 10:57 | HHI.PR ---
Subjective Remarks Patient seen today in follow-up for congestive heart failure and for adjustments in medications related to alcoholic liver disease. Patient's potassium is better. Her ammonia is still elevated Objective Vitals Vital Signs Date Time Temp Pulse Resp B/P Pulse Ox O2 Delivery O2 Flow Rate FiO2 12/17/16 08:00 96.0 137 20 94/69 99 12/17/16 04:00 98.0 90 18 97/66 94 12/17/16 01:57 97.9 88 16 98/63 93 12/16/16 20:09 98.8 71 14 93/53 94 12/16/16 19:48 95 21 12/16/16 15:51 97.9 84 20 95/54 96 12/16/16 11:55 97.2 81 20 99/74 94 I/O 12/16/16 12/16/16 12/16/16 12/17/16 12/17/16 12/17/16 07:00 15:00 23:00 07:00 15:00 23:00 Intake Total 120 ml 1070 ml Balance 120 ml 1070 ml Intake Oral 120 ml 1070 ml # Voids 2 4 3 # Bowel Movements 1 Result Diagram: 12/17/1681712/17/16 0818 Objective Remarks GENERAL: This is a well-nourished, well-developed patient, in no apparent distress. CARDIOVASCULAR: Regular rate and rhythm without murmurs, gallops, or rubs. RESPIRATORY: Clear to auscultation. Breath sounds equal bilaterally. No wheezes , rales, or rhonchi. GASTROINTESTINAL: Abdomen soft, non-tender, nondistended. Normal active bowel sounds MUSCULOSKELETAL: Lower extremity is improved and edema, upper Extremities without clubbing, cyanosis, or edema. NEURO: Alert & Oriented x4 to person, place, time, situation. Moves all ext x4 A/P Problem List: (1) CHF (congestive heart failure) ICD Code: I50.9 Status: Chronic Plan: Exacerbation o diastolic congestive heart failuref We'll continue digoxin, CHAU inhibitor, Cardizem, po Bumex and follow ins and outs Patient on beta jason also which we will continue Patient also on Eliquis (2) A-fib ICD Code: I48.91 Status: Chronic Plan: Currently controlled with diltiazem, digoxin and metoprolol Continue Eliquis Thyroid studies actually normal (3) HTN (hypertension) ICD Code: I10 Status: Chronic Plan: Currently controlled metoprolol, diltiazem, add CHAU inhibitor (4) Alcohol dependence ICD Code: F10.20 Status: Acute Plan: Patient with elevated ammonia level will add lactulose Patient also on diuretics May benefit from Aldactone however patient on quite a bit of diuretic already we will continue to follow patient's progress on current medications (5) Nicotine dependence ICD Code: F17.200 Status: Acute Plan: Continue nicotine patch (6) Electrolyte abnormality ICD Code: E87.8 Status: Acute Plan: Replace hypokalemia, hypomagnesemia and hypocalcemia Discharge Planning home with [facility] in Brenda Aguilar MD Dec 17, 2016 10:57
[2016-12-17 12:00] VITALS: BP 112/63; PULSE 75; RESP 16; TEMP 97.5; O2SAT 96
[2016-12-17] MEDS: LACTULOSE SYRUP 20 GM/30 ML CUP PO SCH ×3 (13:28→20:56)
[2016-12-17 16:00] VITALS: BP 101/68; PULSE 105; RESP 18; TEMP 97.6; O2SAT 95
[2016-12-17 20:00] VITALS: BP 102/63; PULSE 109; PULSE 76; RESP 16; TEMP 99.1; O2SAT 100; O2SAT 95
[2016-12-18] VITALS: BP 81/47; PULSE 72; RESP 16; TEMP 98.9; O2SAT 98
[2016-12-18 02:00] VITALS: BP 99/74
[2016-12-18 07:57] VITALS: BP 116/66; PULSE 106; RESP 20; TEMP 97.1; O2SAT 97
[2016-12-18 08:53] LABS: POTASSIUM 3.9 MEQ/L (3.5-5.1)
[2016-12-18 09:08] LABS: BICARBONATE 34.7 MEQ/L (21.0-32.0)
[2016-12-18] MEDS: SODIUM CHLORIDE 0.9% FLUSH 5 ML FLUSH IVF SCH ×2 (09:33→20:25)
[2016-12-18] MEDS: DILTIAZEM-CD 240 MG CAP ER PO SCH (09:34)
[2016-12-18] MEDS: FOLIC ACID 1 MG TAB PO SCH (09:35)
[2016-12-18] MEDS: APIXABAN 5 MG TABLET PO SCH ×2 (09:36→20:26)
[2016-12-18] MEDS: DIGOXIN 0.125 MG TAB PO SCH (09:36)
[2016-12-18] MEDS: THIAMINE HCL 100 MG TAB PO SCH (09:36)
[2016-12-18] MEDS: LACTULOSE SYRUP 20 GM/30 ML CUP PO SCH ×4 (09:37→20:26)
[2016-12-18] MEDS: POTASSIUM CHLORIDE 10 MEQ CONTROLLED RELEASE TAB PO SCH ×2 (09:37→20:26)
[2016-12-18] MEDS: EUCERIN CREAM 120 GM JAR TOPICAL SCH ×2 (09:38→20:29)
--- NOTE | 2016-12-18 09:43 | HHI.PR ---
Subjective Remarks Follow-up for CHF exacerbation. Patient states she is tired and was up with diarrhea all night. She additionally states she can't get upright in order to eat and she spilled her water on herself. She states she was cold but denies any fevers overnight and denies any difficulty breathing. Discussed with RN who states patient is acting differently from yesterday. Objective Vitals Vital Signs Date Time Temp Pulse Resp B/P Pulse Ox O2 Delivery O2 Flow Rate FiO2 12/18/16 07:57 97.1 106 20 116/66 97 12/18/16 02:00 99/74 12/18/16 00:00 98.9 72 16 81/47 98 12/17/16 20:00 95 21 12/17/16 20:00 99.1 109 16 102/63 100 12/17/16 16:00 97.6 105 18 101/68 95 12/17/16 12:00 97.5 75 16 112/63 96 I/O 12/17/16 12/17/16 12/17/16 12/18/16 12/18/16 12/18/16 07:00 15:00 23:00 07:00 15:00 23:00 Intake Total 800 ml Balance 800 ml Intake Oral 800 ml # Voids 3 4 2 # Bowel Movements 0 1 Result Diagram: 12/17/16 0818 12/18/16 0832 Imaging Last Impressions Lower Extremity Ultrasound 12/15/16 1417 Signed Impressions: Service Date/Time: November 15:13 - CONCLUSION: 1. No DVT identified within either lower extremity. 2. There are edematous changes within the subcutaneous soft tissues. Uriel Santana MD Chest X-Ray 12/15/16 1302 Signed Impressions: Service Date/Time: November 13:55 - CONCLUSION: 1. Cardiomegaly and small left basilar effusion. This could suggest congestive failure. Uriel Santana MD Abdomen/Pelvis CT 12/15/16 1302 Signed Impressions: Service Date/Time: November 13:22 - CONCLUSION: 1. Small right basilar effusion. 2. Mild cardiomegaly. 3. Atherosclerotic plaquing throughout the abdominal aorta. 4. No findings to indicate bowel obstruction or other significant intra-abdominal abnormality seen. No ascites is identified. 5. Enlargement of the uterus suggesting fibroids. Uriel Santana MD Objective Remarks GENERAL: Well-nourished, well patient no apparent distress. SKIN: See MSK. HEAD: Atraumatic. Normocephalic. CARDIOVASCULAR: Regular rate with irregular rhythm. RESPIRATORY: No accessory muscle use. Clear to auscultation. Breath sounds equal bilaterally. GASTROINTESTINAL: Hyperactive bowel sounds. MUSCULOSKELETAL: Wrinkled warm erythematous pitting lower extremity edema bilaterally. NEUROLOGICAL: Awake and alert. Normal speech. PSYCHIATRIC: Upset mood. Urinary Catheter: No Vascular Central Line Catheter: No A/P Problem List: (1) CHF (congestive heart failure) ICD Code: I50.9 Status: Chronic (2) A-fib ICD Code: I48.91 Status: Chronic (3) HTN (hypertension) ICD Code: I10 Status: Chronic (4) Alcohol dependence ICD Code: F10.20 Status: Acute (5) Nicotine dependence ICD Code: F17.200 Status: Acute (6) Electrolyte abnormality ICD Code: E87.8 Status: Acute Assessment and Plan 1) CHF (congestive heart failure) Chronic Exacerbation of diastolic congestive heart failure Echo with EF of 55%. Mild mitral and tricuspid valve regurgitation. Left atrium mildly dilated. We'll continue Digoxin and Cardizem. CHAU inhibitor, BB, and Bumex were held due to hypotension. BP improved this morning. Lisinopril 5 held, but Bumex and metoprolol restarted at lower doses. Patient also on Eliquis Monitor intake and output (2) A-fib Chronic Currently controlled with diltiazem, digoxin and metoprolol Continue Eliquis Thyroid studies normal (3) HTN (hypertension) Chronic Currently controlled on metoprolol, diltiazem. CHAU inhibitor was added but is currently held. (4) Alcohol dependence Patient with elevated ammonia level only mildly improved from yesterday. Continue lactulose and repeat ammonia level tomorrow. CIWA protocol with Ativan prn as directed Continue Folic acid and thiamine (5) Nicotine dependence Continue nicotine patch (6) Electrolyte abnormality Acute Hypokalemia, hypomagnesemia and hypocalcemia improved s/p repletion. Discharge Planning Home with [facility] possibly tomorrow. Attending Statement The exam, history, and the medical decision-making described in the above note were completed with my assistance as the dictating practitioner. I attest that I had a [id number] encounter with the patient on the same day, and personally performed all of the history, exam, or medical decision making. I reviewed and agree with the plan. patient seen in follow-up for CHF. Fluid output stable, blood pressure improved. Patient with some confusion as tolerated and would like a nicotine patch. Patient placed on ciwa protocol will resume blood pressure medicines and diuretic at lower doses Marisol Wallace Dec 18, 2016 09:42 Brenda Aguilar MD Dec 18, 2016 14:13
[2016-12-18] MEDS ORDERED: LORazepam 1 MG TAB PO PRN (11:45)
[2016-12-18] MEDS ORDERED: FLUMAZENIL 0.5 MG/5 ML VIAL IV PUSH PRN (11:45)
[2016-12-18] MEDS ORDERED: LORazepam 2 MG/ML VIAL IV PUSH PRN ×4 (11:45)
[2016-12-18] MEDS ORDERED: LORazepam 2 MG TAB PO PRN (11:45)
[2016-12-18 12:00] VITALS: BP 121/74; PULSE 117; RESP 20; TEMP 98.8; O2SAT 99
[2016-12-18] MEDS ORDERED: PILL SPLITTER OTHER PRN (14:30)
[2016-12-18] MEDS: NICOTINE 14 MG/24 HR PATCH TD SCH (14:31)
[2016-12-18 16:00] VITALS: BP 125/83; PULSE 134; RESP 20; TEMP 97.5; O2SAT 94
[2016-12-18 20:00] VITALS: BP 116/70; PULSE 116; RESP 18; TEMP 97.7; O2SAT 99
[2016-12-18] MEDS: METOPROLOL TARTRATE 25 MG TAB PO SCH (20:26)
[2016-12-18] MEDS: REMOVE OLD NICODERM (NICOTINE) PATCH TD SCH (20:30)
[2016-12-19] VITALS (9 sets, daily range): BP systolic 86–106; BP diastolic 53–81; PULSE 66–129; RESP 18–20; TEMP 96.6–98.7; O2SAT 92–98
[2016-12-19 06:15] LABS: CHLORIDE 104 MEQ/L (98-107); POTASSIUM 3.8 MEQ/L (3.5-5.1); SODIUM (NA) 143 MEQ/L (136-145)
[2016-12-19 06:18] LABS: ANION GAP 9 MEQ/L (5-15); BICARBONATE 29.9 MEQ/L (21.0-32.0)
[2016-12-19 06:19] LABS: BLOOD UREA NITROGEN 5 MG/DL (7-18)
[2016-12-19 06:21] LABS: ALT (GPT) 38 U/L (10-53); AST (GOT) 110 U/L (15-37); GLOMERULAR FILTRATION RATE 131 ML/MIN (>89)
[2016-12-19 06:23] LABS: TOTAL BILIRUBIN ADULT 4.1 MG/DL (0.2-1.0)
[2016-12-19 06:24] LABS: ALKALINE PHOSPHATASE 239 U/L (45-117)
[2016-12-19] MEDS: SODIUM CHLORIDE 0.9% FLUSH 5 ML FLUSH IVF SCH ×2 (09:06→20:14)
[2016-12-19] MEDS: FOLIC ACID 1 MG TAB PO SCH (09:07)
[2016-12-19] MEDS: LACTULOSE SYRUP 20 GM/30 ML CUP PO SCH ×2 (09:09→20:13)
[2016-12-19] MEDS: METOPROLOL TARTRATE 25 MG TAB PO SCH ×2 (09:19→20:14)
[2016-12-19] MEDS: APIXABAN 5 MG TABLET PO SCH ×2 (09:20→20:14)
[2016-12-19] MEDS: DIGOXIN 0.125 MG TAB PO SCH (09:20)
[2016-12-19] MEDS: BUMETANIDE 1 MG TAB PO SCH (09:20)
[2016-12-19] MEDS: DILTIAZEM-CD 240 MG CAP ER PO SCH (09:20)
[2016-12-19] MEDS: THIAMINE HCL 100 MG TAB PO SCH (09:20)
[2016-12-19] MEDS: POTASSIUM CHLORIDE 10 MEQ CONTROLLED RELEASE TAB PO SCH ×2 (09:21→20:13)
[2016-12-19] MEDS: NICOTINE 14 MG/24 HR PATCH TD SCH (09:21)
[2016-12-19] MEDS: EUCERIN CREAM 120 GM JAR TOPICAL SCH ×2 (09:23→20:16)
[2016-12-19] MEDS ORDERED: NICO14DI TD (12:00)
--- NOTE | 2016-12-19 12:04 | HHI.PR ---
Subjective Remarks Patient seen today in follow-up for electrolyte imbalance, atrial fibrillation and congestive heart failure. Patient better today. Respiratory status is better, fluid balance is better and heart rate is up with a lower dose of metoprolol. No new events overnight. Patient is less confused Objective Vitals Vital Signs Date Time Temp Pulse Resp B/P Pulse Ox O2 Delivery O2 Flow Rate FiO2 12/19/16 09:20 115 18 106/72 12/19/16 08:58 97.5 105 18 86/61 94 12/19/16 00:00 96.6 116 18 101/72 94 12/18/16 20:00 97.7 116 18 116/70 99 12/18/16 16:00 97.5 134 20 125/83 94 12/18/16 12:00 98.8 117 20 121/74 99 I/O 12/18/16 12/18/16 12/18/16 12/19/16 12/19/16 12/19/16 07:00 15:00 23:00 07:00 15:00 23:00 Intake Total 330 ml 80 ml Balance 330 ml 80 ml Intake Oral 330 ml 80 ml # Voids 2 3 # Bowel Movements 1 2 3 0 Result Diagram: 12/17/16 0818 12/19/16 0520 Objective Remarks GENERAL: This is a well-nourished, well-developed patient, in no apparent distress. CARDIOVASCULAR: Regular rate and rhythm without murmurs, gallops, or rubs. RESPIRATORY: Clear to auscultation. Breath sounds equal bilaterally. No wheezes , rales, or rhonchi. GASTROINTESTINAL: Abdomen soft, non-tender, nondistended. Normal active bowel sounds MUSCULOSKELETAL: Lower extremity is improved and edema, upper Extremities without clubbing, cyanosis, or edema. NEURO: Alert & Oriented x4 to person, place, time, situation. Moves all ext x4 A/P Problem List: (1) CHF (congestive heart failure) ICD Code: I50.9 Status: Chronic Plan: Exacerbation of diastolic congestive heart failure Improved We'll continue digoxin, Cardizem, po Bumex and follow ins and outs Patient on beta jason also which we will continue at a lower dose Not tolerating ACEi, will DC Patient also on Eliquis (2) A-fib ICD Code: I48.91 Status: Chronic Plan: Continue Eliquis, digoxin, increase metoprolol and follow blood pressure (3) HTN (hypertension) ICD Code: I10 Status: Chronic Plan: Currently controlled metoprolol, diltiazem, add CHAU inhibitor (4) Alcohol dependence ICD Code: F10.20 Status: Acute Plan: Patient with stable ammonia level on lactulose, will decrease to BID Patient also on diuretics May benefit from Aldactone however patient on quite a bit of diuretic already we will continue to follow patient's progress on current medications (5) Nicotine dependence ICD Code: F17.200 Status: Acute Plan: Continue nicotine patch (6) Electrolyte abnormality ICD Code: E87.8 Status: Resolved Plan: Status post replacement of electrolytes Discharge Planning home with [facility] 1-2 days Brenda Aguilar MD Dec 19, 2016 12:04
[2016-12-19] MEDS: REMOVE OLD NICODERM (NICOTINE) PATCH TD SCH (20:14)
[2016-12-20 04:00] VITALS: BP 104/65; PULSE 103; RESP 20; TEMP 98.4; O2SAT 95
[2016-12-20 08:00] VITALS: BP 107/62; PULSE 108; RESP 20; TEMP 97.5; O2SAT 96
[2016-12-20] MEDS: APIXABAN 5 MG TABLET PO SCH (08:30)
[2016-12-20] MEDS: FOLIC ACID 1 MG TAB PO SCH (08:30)
[2016-12-20] MEDS: BUMETANIDE 1 MG TAB PO SCH (08:30)
[2016-12-20] MEDS: METOPROLOL TARTRATE 25 MG TAB PO SCH (08:30)
[2016-12-20] MEDS: DIGOXIN 0.125 MG TAB PO SCH (08:30)
[2016-12-20] MEDS: THIAMINE HCL 100 MG TAB PO SCH (08:30)
[2016-12-20] MEDS: POTASSIUM CHLORIDE 10 MEQ CONTROLLED RELEASE TAB PO SCH (08:31)
[2016-12-20] MEDS: LACTULOSE SYRUP 20 GM/30 ML CUP PO SCH (08:31)
[2016-12-20] MEDS: NICOTINE 14 MG/24 HR PATCH TD SCH (08:32)
[2016-12-20] MEDS: EUCERIN CREAM 120 GM JAR TOPICAL SCH (08:33)
[2016-12-20] MEDS: DILTIAZEM-CD 240 MG CAP ER PO SCH (08:35)
[2016-12-20] MEDS: SODIUM CHLORIDE 0.9% FLUSH 5 ML FLUSH IVF SCH (08:36)
--- NOTE | 2016-12-20 10:46 | HHI.DCPOC ---
Discharge Care Plan Diagnosis: (1) Alcohol dependence (2) CHF (congestive heart failure) (3) Electrolyte abnormality Goals to Promote Your Health * To prevent worsening of your condition and complications * To maintain your health at the optimal level Directions to Meet Your Goals Take your medications as prescribed Follow your dietary instruction Follow activity as directed Keep your appointments as scheduled Take your immunizations and boosters as scheduled If your symptoms worsen call your PCP, if no PCP go to Urgent Care Center or Emergency Room Smoking is Dangerous to Your Health. Avoid second hand smoke Call the 24-hour hour crisis hotline for domestic abuse at Brenda Aguilar MD Dec 20, 2016 10:46
--- NOTE | 2016-12-20 10:47 | HHI.DS ---
[facility] Discharge Summary Admission Date Dec 17, 2016 at 09:35 Discharge Date: Dec 20, 2016 Admitting Diagnosis acute exacerbation CHF. Hepatic failure. Coagulopathy. (1) CHF (congestive heart failure) ICD Code: I50.9 (2) A-fib ICD Code: I48.91 (3) HTN (hypertension) ICD Code: I10 (4) Alcohol dependence ICD Code: F10.20 (5) Nicotine dependence ICD Code: F17.200 (6) Electrolyte abnormality ICD Code: E87.8 Procedures none Brief History - From Admission Patient is a 71-year-old female with chronic tobaccoism and chronic alcoholism who came to the emergency room because of increased edema over the last several weeks. Patient has increased dyspnea on exertion, orthopnea and shortness of breath. She says she's gained about 20 pounds in last 3 weeks. She normally takes Bumex for congestive heart failure (he has diastolic heart failure by echocardiogram in 2014. The patient has a reported adherence to medical treatment plan however noted that her symptoms were getting worse and her brother with whom she is staying encourage her to come to the hospital. She does have a mildly elevated BNP along with x-ray findings which are reviewed by me and consistent with basilar congestion. There are reviewed her EKG was social rate controlled atrial fibrillation and other nonspecific changes. Patient denies chest pain. Patient is admitted through the emergency room for evaluation of acute CHF exacerbation. She was given IV Bumex and has urinated some however she reported some urinary incontinence and is not sure how much relief she has gotten from that. For these reasons the patient is been admitted to the hospital CBC/BMP: 12/17/16 0818 12/19/16 0520 Significant Findings Laboratory Tests Test 12/18/16 12/19/16 08:32 05:20 Carbon Dioxide Level 34.7 MEQ/L (21.0-32.0) Blood Urea Nitrogen 5 MG/DL (7-18) 5 MG/DL (7-18) Calcium Level 8.4 MG/DL 8.1 MG/DL (8.5-10.1) (8.5-10.1) Ammonia 58 MCMOL/L 52 MCMOL/L (11-32) (11-32) Creatinine 0.47 MG/DL (0.50-1.00) Total Bilirubin 4.1 MG/DL (0.2-1.0) Aspartate Amino Transf 110 U/L (15-37) (AST/SGOT) Alkaline Phosphatase 239 U/L (45-117) Total Protein 5.4 GM/DL (6.4-8.2) Albumin 2.0 GM/DL (3.4-5.0) Imaging Last Impressions Lower Extremity Ultrasound 12/15/16 1417 Signed Impressions: Service Date/Time: November 15:13 - CONCLUSION: 1. No DVT identified within either lower extremity. 2. There are edematous changes within the subcutaneous soft tissues. Uriel Santana MD Chest X-Ray 12/15/16 1302 Signed Impressions: Service Date/Time: November 13:55 - CONCLUSION: 1. Cardiomegaly and small left basilar effusion. This could suggest congestive failure. Uriel Santana MD Abdomen/Pelvis CT 12/15/16 1302 Signed Impressions: Service Date/Time: November 13:22 - CONCLUSION: 1. Small right basilar effusion. 2. Mild cardiomegaly. 3. Atherosclerotic plaquing throughout the abdominal aorta. 4. No findings to indicate bowel obstruction or other significant intra-abdominal abnormality seen. No ascites is identified. 5. Enlargement of the uterus suggesting fibroids. Uriel Santana MD PE at Discharge GENERAL: Well-nourished, well patient no apparent distress. SKIN: See MSK. HEAD: Atraumatic. Normocephalic. CARDIOVASCULAR: Regular rate with irregular rhythm. RESPIRATORY: No accessory muscle use. Clear to auscultation. Breath sounds equal bilaterally. GASTROINTESTINAL: Hyperactive bowel sounds. MUSCULOSKELETAL: Wrinkled warm erythematous pitting lower extremity edema bilaterally. NEUROLOGICAL: Awake and alert. Normal speech. PSYCHIATRIC: Upset mood. Pt update on day of discharge Patient seen today for discharge planning. CHF resolved. Discharge plans discussed with patient and she is agreeable Hospital Course Patient was seen and treated for congestive heart failure. Symptoms improved and patient did well with medication adjustments in diuresis. Patient did have some mild metabolic encephalopathy likely related to chronic alcohol dependency. This improved with improvement in her ammonia level by lactulose. Patient's blood pressure was controlled. Atrial fibrillation was controlled patient did well in the hospital Pt Condition on Discharge: Good Discharge Disposition: Discharge Home Discharge Time: > 30 minutes Discharge Instructions DIET: Follow Instructions for: Heart Healthy Diet Activities you can perform: Regular-No Restrictions Follow up Referrals: PCP Follow-up - 1 Week New Medications: Nicotine Patch (Nicotine Patch) 14 Mg/24 Hr Patch 1 PATCH TD DAILY tobacco dep #30 BOX Continued Medications: Apixaban (Eliquis) 5 Mg Tab 5 MG PO BID Blood Clot Prevention #60 Ref 0 TAB Bumetanide (Bumetanide) 1 Mg Tab 1 MG PO DAILY #30 Ref 0 TAB Digoxin (Digoxin) 0.125 Mg Tab 0.125 MG PO DAILY Regulate Heart Beat #30 Ref 0 TAB Diltiazem (Cardizem) 120 Mg Tab 240 MG PO DAILY Angina #120 Ref 0 TAB Folic Acid (Folic Acid) 5 Mg Cap 1 MG PO DAILY Nutritional Supplement Ref 0 CAP Potassium Chloride ER (Potassium Chloride ER) 20 Meq Tab 20 MEQ PO DAILY Electrolyte Replacement #30 Ref 0 TAB Thiamine (Thiamine) 100 Mg Tab 100 MG PO DAILY Nutritional Supplement Ref 0 TAB Discontinued Medications: Metoprolol Tartrate (Metoprolol Tartrate) 50 Mg Tab 50 MG PO BID #60 Ref 0 TAB Brenda Aguilar MD Dec 20, 2016 10:47
[2016-12-20 12:00] VITALS: BP 97/68; PULSE 112; RESP 18; TEMP 97.6; O2SAT 98
== END 2016-12-20 14:24 | disposition home health service (06) | DRG 291 ==
LOC: PHED 10:37 → PHEDA 15:03 → PH3B 16:38 → OBSVTOIN 12-17 09:35
PROVIDERS: ADMIT Hospitalist; ATTEND Hospitalist
DX: I50.33 Acute on chronic diastolic (congestive) heart failure (principal); G93.41 Metabolic encephalopathy; D68.9 Coagulation defect, unspecified; I48.91 Unspecified atrial fibrillation; J44.9 Chronic obstructive pulmonary disease, unspecified; E83.51 Hypocalcemia; I08.1 Rheumatic disorders of both mitral and tricuspid valves; E83.42 Hypomagnesemia; F10.20 Alcohol dependence, uncomplicated; Z86.73 Personal history of transient ischemic attack (TIA), and cerebral infarction without residual deficits; K21.9 Gastro-esophageal reflux disease without esophagitis; I10 Essential (primary) hypertension; F17.210 Nicotine dependence, cigarettes, uncomplicated; K70.40 Alcoholic hepatic failure without coma; R32 Unspecified urinary incontinence; E87.6 Hypokalemia; R19.7 Diarrhea, unspecified
CPT/HCPCS: 71010; 74176; 80048; 80053; 80061; 80162; 80320; 81001; 82140; 83690; 83735; 83880; 84100; 84155; 84436; 84443; 84481; 85025; 85610; 85730; 87086; 93005; 93306; 93970; 96374; G0378; G8987-GP; G8988-GP; J0610; J3411; J3475